=== PATIENT | female | born 1960 | race American Indian/Alaskan Native ===

== ENCOUNTER 2017-08-14 18:21 | Emergency (ER) | payer MEDICARE ==
[2017-08-14 18:41] VITALS: BMI 26.1
[2017-08-14 18:45] VITALS: TEMP 98.3
--- NOTE | 2017-08-14 19:04 | ED PDOC ---
Arrival/HPI - General Chief Complaint: Abnormal Skin Integrity Time Seen by Provider: 08/14/17 18:49 Historian: Patient - History of Present Illness Time/Duration: Other (19 hours) Symptom Onset: Sudden Symptom Course: Worsening Severity Level: Moderate Associated Symptoms (Text): 08/14/17 19:01 Patient reports that she was watching television in bed at approximately 12 midnight when she fell asleep and rolled out of bed. She injured her left ribs and hit her head. There is no nausea or vomiting. No dizziness or lightheadedness. No loss of consciousness. No numbness tingling or paresthesias. No focal weakness. She is not on any blood thinners. There is no shortness of breath. No abdominal pain. Patient has been constipated for a week. Past Medical History - Infectious Disease Hx of Infectious Diseases: None - Cardiac Hx Cardiac Disorders: Yes Hx Hypertension: Yes - Pulmonary Hx Respiratory Disorders: No - Neurological Hx Neurological Disorder: No - HEENT Hx HEENT Disorder: No - Renal Hx Renal Disorder: Yes Type of Dialysis Access: L FA Fistula Date of Last Dialysis Treatment: 08/12/17 Hx Renal Failure: Yes - Endocrine/Metabolic Hx Endocrine Disorders: Yes Hx Diabetes Mellitus Type 2: Yes - Hematological/Oncological Hx Blood Disorders: No - Integumentary Hx Dermatological Disorder: Yes - Musculoskeletal/Rheumatological Hx Musculoskeletal Disorders: No - Gastrointestinal Hx Gastrointestinal Disorders: No - Genitourinary/Gynecological Hx Genitourinary Disorders: No - Psychiatric Hx Psychophysiologic Disorder: No Hx Substance Use: No - Surgical History Hx Section: Yes Other/Comment: L FA fistula. firboids removed - Anesthesia Hx Anesthesia: Yes Hx Anesthesia Reactions: No Family/Social History - Physician Review Nursing Documentation Reviewed: Yes Family/Social History: Unknown Family HX Smoking Status: Heavy Smoker > 10 Cigarettes Daily Hx Alcohol Use: Yes Frequency of alcohol use: Socially Hx Substance Use: No Allergies/Home Meds Allergies/Adverse Reactions: Allergies ampicillin Allergy (Verified 08/14/17 18:41) RASH Home Medications: Home Meds Medication Instructions Recorded Confirmed Aspirin [Adult Low Dose Aspirin EC] 325 mg PO DAILY 08/14/17 08/14/17 Docusate [Colace] 100 mg PO BID 08/14/17 08/14/17 Folic Acid [Folic Acid] 1 mg PO DAILY 08/14/17 08/14/17 Gabapentin [Neurontin] 100 mg PO TID 08/14/17 08/14/17 Montelukast Sodium [Singulair] 10 mg PO DAILY 08/14/17 08/14/17 NIFEdipine ER [Procardia XL] 90 mg PO DAILY 08/14/17 08/14/17 Pantoprazole [Protonix EC Tab] 40 mg PO DAILY 08/14/17 08/14/17 Sevelamer Carbonate [Renvela] 800 mg PO TID 08/14/17 08/14/17 hydrALAZINE [Apresoline] 25 mg PO TID 08/14/17 08/14/17 traMADol [Ultram] 50 mg PO TID 08/14/17 08/14/17 Review of Systems - Physician Review All systems were reviewed & negative as marked: Yes - Review of Systems Constitutional: Fatigue. absent: Fevers Respiratory: absent: SOB, Cough, Wheezing Cardiovascular: Chest Pain. absent: Palpitations, Syncope Gastrointestinal: Constipation. absent: Abdominal Pain, Diarrhea, Nausea, Vomiting Neurological: absent: Headache, Dizziness, Focal Weakness, Gait Changes, Speech Changes, Facial Droop, Disequilibrium, Seizure Physical Exam Vital Signs Temp Pulse Resp BP Pulse Ox 08/14/17 18:45 98.3 F 78 16 165/91 H 95 Temperature: Afebrile Blood Pressure: Hypertensive Pulse: Regular Respiratory Rate: Normal Appearance: Positive for: Well-Appearing, Non-Toxic, Comfortable Pain Distress: None Mental Status: Positive for: Alert and Oriented X 3 - Systems Exam Head: Present: Atraumatic, Normocephalic. No: Tenderness, Contusion, Swelling, Ecchymosis, Abrasion, Laceration Pupils: Present: PERRL Extroacular Muscles: Present: EOMI Conjunctiva: Present: Normal Ears: Present: Normal Canal, Other (Bilateral green myringotomy tubes). No: NORMAL TM, Erythema, TM Bulging Mouth: Present: Moist Mucous Membranes Pharnyx: No: ERYTHEMA, EXUDATE, TONSILS ENLARGED Neck: Present: Normal Range of Motion. No: MIDLINE TENDERNESS, Paraspinal Tenderness Respiratory/Chest: Present: Clear to Auscultation, Good Air Exchange, Tender to Palpation ( left lateral middle rib tenderness with no swelling or crepitus or skin changes). No: Respiratory Distress, Accessory Muscle Use Cardiovascular: Present: Regular Rate and Rhythm, Normal S1, S2. No: Murmurs Abdomen: Present: Normal Bowel Sounds. No: Tenderness, Distention, Peritoneal Signs, Rebound, Guarding Back: Present: Normal Inspection. No: Midline Tenderness, Paraspinal Tenderness Lower Extremity: Present: Normal Inspection. No: Edema Neurological: Present: GCS=15, CN II-XII Intact, Speech Normal, Motor Func Grossly Intact, Normal Cerebellar Funct, Gait Normal Psychiatric: Present: Alert, Oriented x 3, Normal Insight, Normal Concentration Medical Decision Making - RAD Interpretation Radiology Orders: 08/14/17 19:00 RIBS LEFT & PA CHEST [RAD] Stat Left ribs and chest show no fracture dislocation pneumothorax or infiltrate effusion or cardiomegaly Fur Dry Cleaner: ED Physician Disposition/Present on Arrival - Present on Arrival Any Indicators Present on Arrival: No History of DVT/PE: No History of Uncontrolled Diabetes: No Urinary Catheter: No History of Decub. Ulcer: No History Surgical Site Infection Following: None - Disposition Have Diagnosis and Disposition been Completed?: Yes Diagnosis: Chest wall contusion, Head contusion Disposition: HOME/ ROUTINE Disposition Time: 20:12 Patient Plan: Discharge Condition: GOOD Discharge Instructions (ExitCare): Chest Wall Pain (ED), Head Injury (ED), Contusion in Adults (ED) Additional Instructions: Rest and ice. Continue your Percocet as needed. Follow-up with PMD. Follow-up in the ER as needed. Forms: [employer] ([place])
[2017-08-14 20:26] VITALS: BP 139/66; PULSE 77; RESP 18; O2SAT 97
--- NOTE | 2017-08-15 12:50 | RAD ---
PROCEDURE: Radiographs of the Chest and Left Ribs. HISTORY: trauma COMPARISON: None available. TECHNIQUE: Frontal radiograph of the chest and multiple oblique radiographs of the left ribs were obtained. FINDINGS: Examination limited by habitus. LEFT RIBS: No appreciable displaced fracture. LUNGS: No focal consolidation appreciated. Retrocardiac opacity with air-fluid level, likely hiatal hernia. Please note that chest x-ray has limited sensitivity for the detection of pulmonary masses. PLEURA: No significant pleural effusion. No definite pneumothorax. CARDIOVASCULAR: Cardiomegaly. Dense atherosclerotic calcifications of the aorta. Ectatic aorta. Prominent mediastinum. Nonspecific, cannot exclude adenopathy or aneurysmal dilatation of the aorta. OTHER FINDINGS: Osseous demineralization. Degenerative changes. IMPRESSION: Probable hiatal hernia. Cardiomegaly. Dense atherosclerotic calcifications of the aorta. Ectatic aorta. Prominent mediastinum. Nonspecific, cannot exclude adenopathy or aneurysmal dilatation of the aorta. CT of the chest with IV contrast may be considered for further evaluation if indicated. No appreciable displaced left rib fracture. Study marked for PA review.
== END 2017-08-14 20:26 | disposition home or self-care (01) ==
LOC: ED 18:21
DX: S00.93XA Contusion of unspecified part of head, initial encounter (principal); S20.212A Contusion of left front wall of thorax, initial encounter; W06.XXXA Fall from bed, initial encounter; Y92.003 Bedroom of unspecified non-institutional (private) residence as the place of occurrence of the external cause